=== PATIENT | female | born 1980 | race Caucasian/White ===

== ENCOUNTER → 2016-04-05 | Outpatient (REF) | payer BC ==
[~2016-04-05] MED LIST: AMBI10TA PO; BACT800T5 PO; CLAR1TAB2 PO; GABA800T PO; HYDR-3713 PO; IBUP-1114 PO; LEXA1TAB2 PO; MACR100C3 PO; METF-414 PO; METF-415 PO; MORP15TA39 PO; OXYC10TA12 PO; OXYC15TA66 PO; PRED10TA PO; SING10TA32 PO; XANA0.5T PO
== END | disposition home or self-care (01) ==
LOC: M LABDRAWC 11:00
PROVIDERS: ATTEND Internal Medicine Gastroenterology
DX: K59.00 Constipation, unspecified (principal); R19.7 Diarrhea, unspecified; R14.0 Abdominal distension (gaseous); R10.84 Generalized abdominal pain; K92.1 Melena; K56.60 Unspecified intestinal obstruction; K76.0 Fatty (change of) liver, not elsewhere classified; E66.01 Morbid (severe) obesity due to excess calories; R10.13 Epigastric pain

== ENCOUNTER 2016-04-25 13:42 | Emergency (ER) | payer BC ==
[2016-04-25] MEDS ORDERED: NAPROXEN 250 MG TAB As Ordered ONE (16:01)
[2016-04-25] MEDS ORDERED: CLINDAMYCIN 150 MG CAP As Ordered ONE (16:02)
--- NOTE | 2016-04-25 16:15 | EDDOCDS ---
Nurse's Notes [facility] Name: Elvira Torres Age: 36 yrs Sex: Female : 1980 Arrival Date: 04/25/2016 Time: 13:42 Bed Triage 3 Private MD: Saul Medel W Diagnosis: Local infection of the skin and subcutaneous tissue, unspecified-Left Heel Presentation: 04/25 13:49 Presenting complaint: Patient states: i have a sore on my heel, left heel. hx of same srm last June. last year had MRSA in right heel. erd swollen and shooting pain up left leg. fever of 102 was the highest in past 24 hours. Adult Sepsis Screening: The patient does not have new or worsening altered mentation. Patient's respiratory rate is less than 22. Systolic blood pressure is greater than 100. Patient has a qSOFA score of 0- Negative Sepsis Screen. Suicide/Homicide risk assessment- the patient denies having any suicidal and/or homicidal ideations and does not present with any other emotional, behavioral or mental health complaints. Status: Patient is not a managed services consultant or dependent. Transition of care: patient was not received from another setting of care. 13:49 Acuity: KENISHA Level 4 [facility] 13:49 Method Of Arrival: Walkin/Carried/Asstd [facility] Triage Assessment: 13:53 General: Appears in no apparent distress, Behavior is appropriate for age, cooperative. srm Pain: Pain currently is 10 out of 10 on a pain scale. HIV screening NA for this visit Offered previously. Musculoskeletal: Reports left heel pain. 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 bupropion HCl 100 mg Oral tab 1 tab 2 times per day 2. Claritin 10 mg Oral tab 1 tab once daily 3. diazepam 10 mg Oral tab 1 tab 3 times per day prn 4. Lexapro 20 mg Oral tab 1 tab once daily 5. Singulair 10 mg Oral tab 1 tab once daily 6. 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 No barriers to communication noted, The patient speaks fluent Filipino, Speaks appropriately for age. - Family history: Not pertinent. - : The pt / caregiver states he / she is not on anticoagulants. Home medication list is obtained from the patient. - Exposure Risk Screening:: None identified. Screenin:12 Screening information is obtained from the patient. Fall risk: No risks identified. [facility] Assistance ADL's: requires no assistance with activities of daily living. Abuse/DV Screen: The patient / caregiver reports he/she is: not in a situation that causes fear, pain or injury. Nutritional screening: No deficits noted. Advance Directives: There is no active DNR order. home support is adequate. Assessment: 16:12 General: Appears in no apparent distress, comfortable, Behavior is fussy, patient [facility] states she feels she should be admitted and worked up, offered to obtain provider for further discussion, patient declines stating "I don't want to wait, I've already been here three hours while you guys are having all kinds of breaks, I'm just going to [facility] they do a much better job". Patient refused crackers offered with medications. Respiratory: Airway is patent Respiratory effort is even, unlabored, Respiratory pattern is regular, symmetrical. Musculoskeletal: Range of motion intact in all extremities. Vital Signs: 13:44 BP 144 / 88; Pulse 98; Resp 18 S; Temp 98.6(O); Pulse Ox 99% on R/A; Weight 99.79 kg gr2 (R); Height 5 ft. 5 in. (165.10 cm) (R); Pain 9/10; 13:44 Body Mass Index 36.61 (99.79 kg, 165.10 cm) gr2 Vitals: 13:44 Log In Time: April 25, 2016 at 13:44. gr2 ED Course: 13:43 Patient visited by Gibran Sr. gr2 13:43 Saul Medel is Private Physician. gr2 13:43 Patient moved to Waiting gr2 13:45 Patient visited by Gibran Sr. gr2 13:45 Patient moved to Pre RCE gr2 13:50 Triage Initiated srm 15:08 Patient moved to Triage 3 srm 15:31 [facility]endo[facility] ef[facility] 15:31 Renetta Henry MD is Attending Physician. ef1 15:31 Patient visited by Lilli Mendoza PA-C. ef1 15:42 Saul Medel is Referral Physician. ef1 16:12 The patient / caregiver is instructed regarding the plan of care and ED course. [facility] 16:12 No IV's were initiated during this patient's visit. No procedures done that require [facility] assistance. Administered Medications: 16:11 Drug: Clindamycin 300 mg [clindamycin 150 mg capsule (2 caps)] Route: PO; cj 16:11 Drug: Naproxen 500 mg [naproxen 250 mg tablet (2 tabs)] Route: PO; [facility] Order Results: There are currently no results for this order. Outcome: 15:42 Discharge ordered by Provider. ef1 16:12 Discharge Assessment: Patient awake, alert and oriented x 3. No cognitive and/or [facility] functional deficits noted. Patient verbalized understanding of disposition instructions. patient administered narcotics - no. The following High Risk Discharge criteria are identified: None. Discharged to home ambulatory. Condition: good Condition: stable Condition: improved. Discharge instructions given to patient, Instructed on discharge instructions, follow up and referral plans. medication usage, Demonstrated understanding of instructions, medications, Pt was receptive of discharge instructions/ teaching. Prescriptions given X 2. No special radiology studies were completed. Property :Personal belongings accompany Pt. 16:15 Patient left the ED. [facility] Signatures: Rachael Baron, RN CRI[facility]IAN [facility] Lilli Mendoza PA-C PA-C ef1 Alma De Los Santos RN RN [facility] Gibran Sr gr2 MTDD
--- NOTE | 2016-04-25 16:15 | EDDOCDS ---
Physician Documentation [facility] Name: Elvira Torres Age: 36 yrs Sex: Female : 1980 Arrival Date: 04/25/2016 Time: 13:42 Bed Triage 3 Private MD: Saul Medel W Disposition: 04/25/16 15:42 Discharged to Home/Self Care. Impression: Local infection of the skin and subcutaneous tissue, unspecified - Left Heel. - Condition is Stable. - Prescriptions for Clindamycin HCl 300 mg Oral Capsule - take 1 capsule by ORAL route every 6 hours; 40 capsule. Naprosyn 500 mg Oral Tablet - take 1 tablet by ORAL route 2 times per day take with food; 30 tablet. - Medication Reconciliation, Local Pharmacy Hours form. - Follow up: Saul Medel; When: 1 - 2 days; Reason: Recheck today's complaints, Continuance of care. Follow up: Emergency Department; Reason: Worsening of conditions. - Problem is new. - Symptoms have improved. Historical: - Allergies: Carbamazepine; - Home Meds: 1. bupropion HCl 100 mg Oral tab 1 tab 2 times per day 2. Claritin 10 mg Oral tab 1 tab once daily 3. diazepam 10 mg Oral tab 1 tab 3 times per day prn 4. Lexapro 20 mg Oral tab 1 tab once daily 5. Singulair 10 mg Oral tab 1 tab once daily 6. 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 No barriers to communication noted, The patient speaks fluent Burmese, Speaks appropriately for age. - Family history: Not pertinent. - : The pt / caregiver states he / she is not on anticoagulants. Home medication list is obtained from the patient. - Exposure Risk Screening:: None identified. 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 5 in. (165.10 cm) (R); Pain 9/10; 13:44 Body Mass Index 36.61 (99.79 kg, 165.10 cm) gr2 MDM: 15:39 Clindamycin 300 mg PO once ordered. ef1 15:39 Naproxen 500 mg PO once; administer with food or milk ordered. ef1 16:01 Financial registration complete. gj Administered Medications: 16:11 Drug: Clindamycin 300 mg [clindamycin 150 mg capsule (2 caps)] Route: PO; [facility] 16:11 Drug: Naproxen 500 mg [naproxen 250 mg tablet (2 tabs)] Route: PO; [facility] Signatures: Rachael Baron RN RN [facility] Lilli Mendoza, GARCIA PAKeenan ef Alma De Los Santos RN RN [facility] Chuyita Wharton MTDD
--- NOTE | 2016-04-27 17:16 | EDDOCDS ---
Physician Documentation [facility] Name: Elvira Torres Age: 36 yrs Sex: Female : 1980 Arrival Date: 04/25/2016 Time: 13:42 Bed Triage 3 Private MD: Saul Medel W Disposition: 04/25/16 15:42 Discharged to Home/Self Care. Impression: Local infection of the skin and subcutaneous tissue, unspecified - Left Heel. - Condition is Stable. - Prescriptions for Clindamycin HCl 300 mg Oral Capsule - take 1 capsule by ORAL route every 6 hours; 40 capsule. Naprosyn 500 mg Oral Tablet - take 1 tablet by ORAL route 2 times per day take with food; 30 tablet. - Medication Reconciliation, Local Pharmacy Hours form. - Follow up: Saul Medel; When: 1 - 2 days; Reason: Recheck today's complaints, Continuance of care. Follow up: Emergency Department; Reason: Worsening of conditions. - Problem is new. - Symptoms have improved. Historical: - Allergies: Carbamazepine; - Home Meds: 1. bupropion HCl 100 mg Oral tab 1 tab 2 times per day 2. Claritin 10 mg Oral tab 1 tab once daily 3. diazepam 10 mg Oral tab 1 tab 3 times per day prn 4. Lexapro 20 mg Oral tab 1 tab once daily 5. Singulair 10 mg Oral tab 1 tab once daily 6. 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 No barriers to communication noted, The patient speaks fluent Ghanaian, Speaks appropriately for age. - Family history: Not pertinent. - : The pt / caregiver states he / she is not on anticoagulants. Home medication list is obtained from the patient. - Exposure Risk Screening:: None identified. 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 5 in. (165.10 cm) (R); Pain 9/10; 13:44 Body Mass Index 36.61 (99.79 kg, 165.10 cm) gr2 MDM: 15:39 Clindamycin 300 mg PO once ordered. ef1 15:39 Naproxen 500 mg PO once; administer with food or milk ordered. ef1 16:01 Financial registration complete. [facility] 16:45 [facility] Payment Agreement was scanned into [employer] and attached to record. [facility] 21:05 T-Sheet-- Draft Copy was scanned into [employer] and attached to record. klr Administered Medications: 16:11 Drug: Clindamycin 300 mg [clindamycin 150 mg capsule (2 caps)] Route: PO; [facility] 16:11 Drug: Naproxen 500 mg [naproxen 250 mg tablet (2 tabs)] Route: PO; [facility] Signatures: Rachael Baron RN RN [facility] Lilli Mendoza, PAEverC PAEverC ef1 Alma De Los Santos RN RN [facility] Chuyita Wharton [facility] Shonna Callaway klr The chart was reviewed and I authenticate all verbal orders and agree with the evaluation and treatment provided.Attachments: 16:45 [facility] Payment Agreement [facility] 21:05 T-Sheet-- Draft Copy klr Chart Complete MTDD
--- NOTE | 2016-04-27 17:16 | EDDOCDS ---
Physician Documentation [facility] Name: Elvira Torres Age: 36 yrs Sex: Female : 1980 Arrival Date: 04/25/2016 Time: 13:42 Bed Triage 3 Private MD: Saul Medel W Disposition: 04/25/16 15:42 Discharged to Home/Self Care. Impression: Local infection of the skin and subcutaneous tissue, unspecified - Left Heel. - Condition is Stable. - Prescriptions for Clindamycin HCl 300 mg Oral Capsule - take 1 capsule by ORAL route every 6 hours; 40 capsule. Naprosyn 500 mg Oral Tablet - take 1 tablet by ORAL route 2 times per day take with food; 30 tablet. - Medication Reconciliation, Local Pharmacy Hours form. - Follow up: Saul Medel; When: 1 - 2 days; Reason: Recheck today's complaints, Continuance of care. Follow up: Emergency Department; Reason: Worsening of conditions. - Problem is new. - Symptoms have improved. Historical: - Allergies: Carbamazepine; - Home Meds: 1. bupropion HCl 100 mg Oral tab 1 tab 2 times per day 2. Claritin 10 mg Oral tab 1 tab once daily 3. diazepam 10 mg Oral tab 1 tab 3 times per day prn 4. Lexapro 20 mg Oral tab 1 tab once daily 5. Singulair 10 mg Oral tab 1 tab once daily 6. 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 No barriers to communication noted, The patient speaks fluent Kyrgyz, Speaks appropriately for age. - Family history: Not pertinent. - : The pt / caregiver states he / she is not on anticoagulants. Home medication list is obtained from the patient. - Exposure Risk Screening:: None identified. 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 5 in. (165.10 cm) (R); Pain 9/10; 13:44 Body Mass Index 36.61 (99.79 kg, 165.10 cm) gr2 MDM: 15:39 Clindamycin 300 mg PO once ordered. ef1 15:39 Naproxen 500 mg PO once; administer with food or milk ordered. ef1 16:01 Financial registration complete. [facility] 16:45 [facility] Payment Agreement was scanned into [employer] and attached to record. [facility] 21:05 T-Sheet-- Draft Copy was scanned into [employer] and attached to record. klr Administered Medications: 16:11 Drug: Clindamycin 300 mg [clindamycin 150 mg capsule (2 caps)] Route: PO; [facility] 16:11 Drug: Naproxen 500 mg [naproxen 250 mg tablet (2 tabs)] Route: PO; [facility] Signatures: Rachael Baron RN RN [facility] Lilli Mendoza, PAEverC PAEverC ef1 Alma De Los Santos RN RN [facility] Chuyita Wharton [facility] Shonna Callaway klr The chart was reviewed and I authenticate all verbal orders and agree with the evaluation and treatment provided.Attachments: 16:45 [facility] Payment Agreement [facility] 21:05 T-Sheet-- Draft Copy klr Chart Complete MTDD
--- NOTE | 2016-04-27 17:16 | EDDOCDS ---
Nurse's Notes [facility] Name: Elvira Torres Age: 36 yrs Sex: Female : 1980 Arrival Date: 04/25/2016 Time: 13:42 Bed Triage 3 Private MD: Saul Medel W Diagnosis: Local infection of the skin and subcutaneous tissue, unspecified-Left Heel Presentation: 04/25 13:49 Presenting complaint: Patient states: i have a sore on my heel, left heel. hx of same srm last June. last year had MRSA in right heel. erd swollen and shooting pain up left leg. fever of 102 was the highest in past 24 hours. Adult Sepsis Screening: The patient does not have new or worsening altered mentation. Patient's respiratory rate is less than 22. Systolic blood pressure is greater than 100. Patient has a qSOFA score of 0- Negative Sepsis Screen. Suicide/Homicide risk assessment- the patient denies having any suicidal and/or homicidal ideations and does not present with any other emotional, behavioral or mental health complaints. Status: Patient is not a public service director or dependent. Transition of care: patient was not received from another setting of care. 13:49 Acuity: KENISHA Level 4 [facility] 13:49 Method Of Arrival: Walkin/Carried/Asstd [facility] Triage Assessment: 13:53 General: Appears in no apparent distress, Behavior is appropriate for age, cooperative. srm Pain: Pain currently is 10 out of 10 on a pain scale. HIV screening NA for this visit Offered previously. Musculoskeletal: Reports left heel pain. 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 bupropion HCl 100 mg Oral tab 1 tab 2 times per day 2. Claritin 10 mg Oral tab 1 tab once daily 3. diazepam 10 mg Oral tab 1 tab 3 times per day prn 4. Lexapro 20 mg Oral tab 1 tab once daily 5. Singulair 10 mg Oral tab 1 tab once daily 6. 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 No barriers to communication noted, The patient speaks fluent [place] Islander, Speaks appropriately for age. - Family history: Not pertinent. - : The pt / caregiver states he / she is not on anticoagulants. Home medication list is obtained from the patient. - Exposure Risk Screening:: None identified. Screenin:12 Screening information is obtained from the patient. Fall risk: No risks identified. [facility] Assistance ADL's: requires no assistance with activities of daily living. Abuse/DV Screen: The patient / caregiver reports he/she is: not in a situation that causes fear, pain or injury. Nutritional screening: No deficits noted. Advance Directives: There is no active DNR order. home support is adequate. Assessment: 16:12 General: Appears in no apparent distress, comfortable, Behavior is fussy, patient [facility] states she feels she should be admitted and worked up, offered to obtain provider for further discussion, patient declines stating "I don't want to wait, I've already been here three hours while you guys are having all kinds of breaks, I'm just going to [facility] they do a much better job". Patient refused crackers offered with medications. Respiratory: Airway is patent Respiratory effort is even, unlabored, Respiratory pattern is regular, symmetrical. Musculoskeletal: Range of motion intact in all extremities. Vital Signs: 13:44 BP 144 / 88; Pulse 98; Resp 18 S; Temp 98.6(O); Pulse Ox 99% on R/A; Weight 99.79 kg gr2 (R); Height 5 ft. 5 in. (165.10 cm) (R); Pain 9/10; 13:44 Body Mass Index 36.61 (99.79 kg, 165.10 cm) gr2 Vitals: 13:44 Log In Time: April 25, 2016 at 13:44. gr2 ED Course: 13:43 Patient visited by Gibran Sr. gr2 13:43 Saul Medel is Private Physician. gr2 13:43 Patient moved to Waiting gr2 13:45 Patient visited by Gibran Sr. gr2 13:45 Patient moved to Pre RCE gr2 13:50 Triage Initiated srm 15:08 Patient moved to Triage 3 srm 15:31 Lilli Mendoza PA-C is [facility]. ef1 15:31 Renetta Henry MD is Attending Physician. ef1 15:31 Patient visited by Lilli Mendoza PA-C. ef1 15:42 Saul Medel is Referral Physician. ef1 16:12 The patient / caregiver is instructed regarding the plan of care and ED course. [facility] 16:12 No IV's were initiated during this patient's visit. No procedures done that require [facility] assistance. 16:45 [facility] Payment Agreement was scanned into [employer] and attached to record. [facility] 21:05 T-Sheet-- Draft Copy was scanned into [employer] and attached to record. klr Administered Medications: 16:11 Drug: Clindamycin 300 mg [clindamycin 150 mg capsule (2 caps)] Route: PO; [facility] 16:11 Drug: Naproxen 500 mg [naproxen 250 mg tablet (2 tabs)] Route: PO; [facility] Order Results: There are currently no results for this order. Outcome: 15:42 Discharge ordered by Provider. ef1 16:12 Discharge Assessment: Patient awake, alert and oriented x 3. No cognitive and/or [facility] functional deficits noted. Patient verbalized understanding of disposition instructions. patient administered narcotics - no. The following High Risk Discharge criteria are identified: None. Discharged to home ambulatory. Condition: good Condition: stable Condition: improved. Discharge instructions given to patient, Instructed on discharge instructions, follow up and referral plans. medication usage, Demonstrated understanding of instructions, medications, Pt was receptive of discharge instructions/ teaching. Prescriptions given X 2. No special radiology studies were completed. Property :Personal belongings accompany Pt. 16:15 Patient left the ED. [facility] Signatures: Rachael Baron RN RN [facility] Lilli Mendoza PA-C PA-C ef1 Alma De Los Santos RN RN [facility] Gibran Sr 2 Chuyita Wharton Shonna Callaway Chart Complete MTDD
== END 2016-04-25 16:15 | disposition home or self-care (01) ==
LOC: M ED 13:42
DX: L08.9 Local infection of the skin and subcutaneous tissue, unspecified (principal); F32.9 Major depressive disorder, single episode, unspecified; J30.9 Allergic rhinitis, unspecified; L52 Erythema nodosum; E28.2 Polycystic ovarian syndrome; G50.8 Other disorders of trigeminal nerve; K76.0 Fatty (change of) liver, not elsewhere classified; Z79.899 Other long term (current) drug therapy; Z88.8 Allergy status to other drugs, medicaments and biological substances

== ENCOUNTER → 2016-06-17 | Outpatient (REF) | payer BC | LOC: M LAB REF 16:42 | PROVIDERS: ATTEND Physician Assistant | DX: J02.9 Acute pharyngitis, unspecified (principal) ==

== ENCOUNTER 2016-11-01 11:13 | Emergency (ER) | payer BC ==
[~2016-11-01] VITALS: Ht 165.1 cm; Wt 109.1 kg
[~2016-11-01 11:13] MED LIST changes: -MACR100C3 PO; +MACR100C43 PO; -MORP15TA39 PO; +MORP1TAB19 PO
[2016-11-01] MEDS ORDERED: METF-415 PO (11:31)
[2016-11-01] MEDS ORDERED: VALI10TA PO (11:31)
[2016-11-01] MEDS ORDERED: TIZA4CAP3 PO (11:31)
[2016-11-01] MEDS ORDERED: MORPHINE 4 MG/ML 1ML SYRINGE IM ONE ×2 (13:30→14:45)
[2016-11-01] MEDS ORDERED: ONDANSETRON 4 MG ORAL DISINTEGRATING TAB (S0181) PO ONE (13:30)
[2016-11-01] MEDS ORDERED: MORPHINE 4 MG/ML 1ML SYRINGE IV ONE (13:30)
[2016-11-01] MEDS ORDERED: KETOROLAC 60 MG/2 ML VIAL (J1885) IM ONE (18:00)
--- NOTE | 2016-11-01 18:11 | REP ---
MRI LUMBAR SPINE WITHOUT CONTRAST: HISTORY: Back pain. Decreased signal intensity on T2 weighted images is present in the L4-5 intervertebral discs. The discs are decreased in height. These findings are consistent with disc degeneration. There is no disc bulge or herniation at the L1-2 through L3-4 and L5-S1 level. The nerves exit the neural foramina without compression. A diffuse disc bulge and small central disc protrusion are present in the L 4-5 level. There is minimal compression of the thecal sac. The L4-nerves exit the neural foramina without compression. The conus medullaris is normal in appearance terminalizing at the level of the T12-L1 intervertebral discs. Normal signal intensity is present in the lumbar vertebral bodies. IMPRESSION: Diffuse disc bulge and small central disc protrusion at the L4-5 level with minimal thecal sac compression. Signed by Saul Fritz MD 11/02/2016 08:47 A
[2016-11-01] MEDS ORDERED: PERCOCET 5MG/325MG TAB PO ONE (19:00)
[2016-11-01] MEDS ORDERED: PERC5TAB12 PO (19:02)
[2016-11-01 19:10] VITALS: BP 136/72
== END 2016-11-01 19:11 | disposition home or self-care (01) ==
LOC: M ED 11:13
DX: M51.26 Other intervertebral disc displacement, lumbar region (principal); G89.29 Other chronic pain; R15.9 Full incontinence of feces; M51.36 Other intervertebral disc degeneration, lumbar region; E28.2 Polycystic ovarian syndrome; Z79.84 Long term (current) use of oral hypoglycemic drugs; Z79.899 Other long term (current) drug therapy; Z87.891 Personal history of nicotine dependence; Z88.8 Allergy status to other drugs, medicaments and biological substances
CPT/HCPCS: 72148; 96372; 99282; J1885

== ENCOUNTER 2017-07-19 10:45 | Emergency (ER) | payer BC ==
[2017-07-19 11:44] LABS: AMORPHOUS SEDIMENT SMALL (NEGATIVE); APPEARANCE, URINE CLOUDY (CLEAR); BACTERIA, URINE AUTO 1+ (NEGATIVE); BILIRUBIN, URINE AUTO NEGATIVE (NEGATIVE); BLOOD, URINE BLOOD 3+ (NEGATIVE); COLOR, URINE YELLOW (YELLOW); GLUCOSE, URINE (UA) AUTO NEGATIVE (NEGATIVE); KETONE, URINE AUTO NEGATIVE (NEGATIVE); LEUKOCYTE ESTERASE, URINE AUTO TRACE (NEGATIVE); MUCUS, URINE SMALL (NEGATIVE); NITRITE, URINE AUTO NEGATIVE (NEGATIVE); PROTEIN, URINE AUTO NEGATIVE (NEGATIVE); RBC, URINE AUTO TNTC /HPF (0-3); SPECIFIC GRAVITY URINE AUTO 1.018 (1.002-1.035); SQUAMOUS EPITHELIAL CELL UR AU 5 /HPF (0-6); UROBILINOGEN, URINE AUTO 0.2 mg/dL (0.0-2.0); WBC, URINE AUTO 17 /HPF (0-3)
[2017-07-19] MEDS: KETOROLAC 30 MG/ML VIAL (J1885) IV (12:14)
[2017-07-19 12:24] LABS: BASO # 0.1 10^3/uL (0.0-0.2); EOS # 0.4 10^3/uL (0.0-0.50); EOS % 3.2 % (0.0-3.0); HEMATOCRIT 37.7 % (36.0-47.0); HEMOGLOBIN 12.7 g/dl (12.0-15.5); IMMATURE GRANULOCYTE % 1.4 % (0-3.0); LYMPH # 2.8 10^3/uL (1.5-4.5); LYMPH % 25.5 % (24.0-44.0); MEAN CORPUSCULAR HGB CONC 33.7 g/dl (32.0-36.5); MONO # 0.7 10^3/uL (0.0-0.8); MONO % 6.6 % (0.0-5.0); NEUTROPHILS # 6.8 10^3/uL (1.8-7.7); NEUTROPHILS % 62.3 % (36.0-66.0); PLATELET COUNT, AUTOMATED 257 10^3/uL (150-450); RED BLOOD COUNT 4.54 10^6/uL (4.00-5.40); RED CELL DISTRIBUTION WIDTH 13.2 % (11.5-14.5); WHITE BLOOD COUNT 10.9 10^3/uL (4.0-10.0)
[2017-07-19 12:52] LABS: ALBUMIN 4.2 GM/DL (3.2-5.2); ALBUMIN/GLOBULIN RATIO 1.14 (1.00-1.93); ALKALINE PHOSPHATASE 94 U/L (45-117); ALT/SGPT 72 U/L (12-78); AMYLASE 106 U/L (25-115); ANION GAP 5 MEQ/L (8-16); AST/SGOT 44 U/L (7-37); BILIRUBIN,DIRECT 0.2 MG/DL (0.0-0.2); BILIRUBIN,TOTAL 0.7 MG/DL (0.2-1.0); BLOOD UREA NITROGEN 13 MG/DL (7-18); C REACTIVE PROTEIN QUANTITATIV 1.31 MG/DL (0.00-0.30); CALCIUM LEVEL 9.2 MG/DL (8.5-10.1); CARBON DIOXIDE LEVEL 27 MEQ/L (21-32); CHLORIDE LEVEL 106 MEQ/L (98-107); CREATININE FOR GFR 0.82 MG/DL (0.55-1.30); GAMMA GLUTAMYLTRANSPEPTIDASE 84 U/L (5-55); GLOMERULAR FILTRATION RATE > 60.0 (>60); GLUCOSE, FASTING 79 MG/DL (70-100); LIPASE 265 U/L (73-393); POTASSIUM SERUM 4.2 MEQ/L (3.5-5.1); SODIUM LEVEL 138 MEQ/L (136-145); TOTAL PROTEIN 7.9 GM/DL (6.4-8.2)
[2017-07-19 13:01] LABS: LACTIC ACID SEPSIS PROTOCOL 1.6 MMOL/L (0.4-2.0)
[2017-07-19] MEDS: MORPHINE 4 MG/ML 1ML VIAL/SYRINGE (J2270) IV (13:03)
[2017-07-19] MEDS: NS 1,000 ML IV (13:26)
== END 2017-07-19 14:19 | disposition home or self-care (01) ==
LOC: M ED 10:45
DX: N39.0 Urinary tract infection, site not specified (principal); K80.50 Calculus of bile duct without cholangitis or cholecystitis without obstruction; R16.2 Hepatomegaly with splenomegaly, not elsewhere classified; K76.0 Fatty (change of) liver, not elsewhere classified; Z98.890 Other specified postprocedural states; E66.9 Obesity, unspecified; E28.2 Polycystic ovarian syndrome; F33.9 Major depressive disorder, recurrent, unspecified; F41.9 Anxiety disorder, unspecified; G50.0 Trigeminal neuralgia; Z87.448 Personal history of other diseases of urinary system; Z88.8 Allergy status to other drugs, medicaments and biological substances
CPT/HCPCS: J2270

== ENCOUNTER → 2018-02-13 | Outpatient (REF) | payer BC ==
[2018-02-13 16:56] LABS: HEMATOCRIT 39.2 % (36.0-47.0); HEMOGLOBIN 12.7 g/dl (12.0-15.5); MEAN CORPUSCULAR HEMOGLOBIN 26.6 pg (27.0-33.0); MEAN CORPUSCULAR HGB CONC 32.4 g/dl (32.0-36.5); MEAN CORPUSCULAR VOLUME 82.2 fl (80.0-96.0); PLATELET COUNT, AUTOMATED 257 10^3/uL (150-450); RED BLOOD COUNT 4.77 10^6/uL (4.00-5.40); RED CELL DISTRIBUTION WIDTH 13.6 % (11.5-14.5); WHITE BLOOD COUNT 10.6 10^3/uL (4.0-10.0)
[2018-02-13 17:47] LABS: ALBUMIN 4.2 GM/DL (3.2-5.2); ALBUMIN/GLOBULIN RATIO 1.11 (1.00-1.93); ALKALINE PHOSPHATASE 82 U/L (45-117); ALT/SGPT 44 U/L (12-78); ANION GAP 8 MEQ/L (8-16); AST/SGOT 22 U/L (7-37); BILIRUBIN,TOTAL 0.5 MG/DL (0.2-1.0); BLOOD UREA NITROGEN 12 MG/DL (7-18); CALCIUM LEVEL 9.1 MG/DL (8.5-10.1); CARBON DIOXIDE LEVEL 29 MEQ/L (21-32); CHLORIDE LEVEL 102 MEQ/L (98-107); CHOLESTEROL LEVEL 197 MG/DL (<200); CHOLESTEROL RISK RATIO 5.472 (<5); CREATININE FOR GFR 0.79 MG/DL (0.55-1.30); GLOMERULAR FILTRATION RATE > 60.0 (>60); GLUCOSE, FASTING 84 MG/DL (70-100); HDL CHOLESTEROL 36 MG/DL (>40); LDL CHOLESTEROL 130 MG/DL (<100); NON-HDL-C 161 MG/DL; POTASSIUM SERUM 4.2 MEQ/L (3.5-5.1); SODIUM LEVEL 139 MEQ/L (136-145); TRIGLYCERIDES LEVEL 154 MG/DL (<150)
[2018-02-13 18:07] LABS: ESTIMATED AVERAGE GLUCOSE 128 MG/DL (60-110); HEMOGLOBIN A1c 6.1 %
== END ==
LOC: M SFHCCLAY 11:22
DX: E78.5 Hyperlipidemia, unspecified (principal); E07.9 Disorder of thyroid, unspecified; E66.01 Morbid (severe) obesity due to excess calories; R42 Dizziness and giddiness
CPT/HCPCS: 84443

== ENCOUNTER → 2019-06-11 | Outpatient (CLI) | payer BC ==
[~2019-06-11] MED LIST changes: +CLAR10CA3 PO; -GABA800T PO; +GABA800T4 PO; +HYDR-3715 PO; +PERC5TAB12 PO; +PRED-351 PO; -PRED10TA PO; +TIZA4CAP PO; +VALI10TA PO; +ZOFR4TAB14 PO
== END ==
LOC: M LABSMTC 11:46
PROVIDERS: ATTEND Family Medicine
DX: Z11.59 Encounter for screening for other viral diseases (principal); Z20.818 Contact with and (suspected) exposure to other bacterial communicable diseases

== ENCOUNTER → 2019-09-20 | Outpatient (REF) | payer BC ==
[2019-09-20 12:58] LABS: BASO # 0.1 10^3/uL (0.0-0.2); BASO % 1.1 % (0.0-1.0); EOS # 0.5 10^3/uL (0.0-0.5); EOS % 4.2 % (0.0-3.0); HEMOGLOBIN 13.1 g/dl (12.0-15.5); LYMPH # 2.4 10^3/uL (1.5-5.0); LYMPH % 21.2 % (24.0-44.0); MEAN CORPUSCULAR HEMOGLOBIN 27.8 pg (27.0-33.0); MEAN CORPUSCULAR HGB CONC 32.8 g/dl (32.0-36.5); MEAN CORPUSCULAR VOLUME 84.7 fl (80.0-96.0); MONO # 0.8 10^3/uL (0.0-0.8); MONO % 6.6 % (0.0-5.0); NEUTROPHILS # 7.5 10^3/uL (1.5-8.5); NEUTROPHILS % 65.8 % (36.0-66.0); PLATELET COUNT, AUTOMATED 282 10^3/uL (150-450); RED BLOOD COUNT 4.72 10^6/uL (4.00-5.40); WHITE BLOOD COUNT 11.4 10^3/uL (4.0-10.0)
[2019-09-20 13:37] LABS: ALBUMIN 3.7 GM/DL (3.2-5.2); ALT/SGPT 37 U/L (12-78); BILIRUBIN,TOTAL 0.5 MG/DL (0.2-1.0); BLOOD UREA NITROGEN 16 MG/DL (7-18); CALCIUM LEVEL 9.1 MG/DL (8.5-10.1); CARBON DIOXIDE LEVEL 27 MEQ/L (21-32); CHLORIDE LEVEL 105 MEQ/L (98-107); CHOLESTEROL LEVEL 181 MG/DL (<200); CHOLESTEROL RISK RATIO 6.464 (<5); CREATININE FOR GFR 0.82 MG/DL (0.55-1.30); FREE T4 1.25 NG/DL (0.76-1.46); GLOMERULAR FILTRATION RATE > 60.0 (>60); GLUCOSE, FASTING 146 MG/DL (70-100); HDL CHOLESTEROL 28 MG/DL (>40); LDL CHOLESTEROL 96 MG/DL (<100); NON-HDL-C 153 MG/DL; POTASSIUM SERUM 4.5 MEQ/L (3.5-5.1); SODIUM LEVEL 139 MEQ/L (136-145); TOTAL PROTEIN 7.5 GM/DL (6.4-8.2); TRIGLYCERIDES LEVEL 283 MG/DL (<150)
[2019-09-20 17:38] LABS: HEMOGLOBIN A1c 7.3 %
== END ==
LOC: M SFHCCLAY 08:05
PROVIDERS: ATTEND Nurse Practitioner Family
DX: R23.8 Other skin changes (principal); R60.9 Edema, unspecified; R10.13 Epigastric pain; L40.9 Psoriasis, unspecified; E78.5 Hyperlipidemia, unspecified; E66.01 Morbid (severe) obesity due to excess calories; M51.26 Other intervertebral disc displacement, lumbar region; E28.2 Polycystic ovarian syndrome; R16.0 Hepatomegaly, not elsewhere classified

== ENCOUNTER 2019-10-01 11:35 | Emergency (ER) | payer BC ==
[~2019-10-01 11:35] MED LIST changes: +GASTROGRAFIN SOLUTION 30ML (Q9963) ONE; +METOCLOPRAMIDE INJ 10MG/2ML VIAL (J2765 PER 1) ONE; +MORPHINE 4 MG/ML 1ML VIAL/SYRINGE (J2270) ONE; +ONDANSETRON 4MG/2ML VIAL ONE
[2019-10-01] MEDS ORDERED: ISOVUE-370 76% 100ML VIAL As Ordered ONE (14:10)
[2019-10-01] MEDS ORDERED: MORPHINE 4 MG/ML 1ML VIAL/SYRINGE (J2270) ONE (15:36)
--- NOTE | 2019-11-01 18:21 | REP ---
CT OF THE ABDOMEN AND PELVIS WITH CONTRAST: HISTORY: Abdominal pain, rule out obstruction. TECHNIQUE: Axial contrast-enhanced images from the lung bases to the pubic symphysis using oral (per protocol) and 100 cc Isovue 370 intravenous contrast material with coronary and sagittal reformations. FINDINGS: Lung bases are clear. The visualized heart and pericardium are normal. Enlarged fatty liver measures greater than 26 cm in craniocaudal length without focal hepatic lesion identified. The spleen, pancreas, gallbladder, bilateral adrenal glands and kidneys are relatively normal. The right kidney demonstrates mild, chronic-appearing cortical scarring. The enteric system is without obstruction or acute inflammatory process. Normal terminal ileum and cecum identified in the right lower quadrant. The pelvis demonstrates normal bladder and age appropriate uterus/adnexa. No pelvic fluid. No ascites. No free air. No adenopathy. The abdominal aorta and vasculature are normal. Evidence for prior partial laminectomy and posterior fixation at the L4- 5 level. The remainder of the skeletal structures demonstrate age related changes without acute process. IMPRESSION: 1. Hepatomegaly and hepatosteatosis without focal hepatic lesion. 2. No further acute abdominopelvic pathology appreciated. MTDD
[2019-11-04 09:19] LABS: BASO # 0.1 10^3/uL (0.0-0.2); BASO % 0.5 % (0.0-1.0); EOS # 0.7 10^3/uL (0.0-0.5); EOS % 6.9 % (0.0-3.0); HEMATOCRIT 40.2 % (36.0-47.0); LYMPH # 2.6 10^3/uL (1.5-5.0); LYMPH % 26.1 % (24.0-44.0); MEAN CORPUSCULAR HEMOGLOBIN 27.3 pg (27.0-33.0); MEAN CORPUSCULAR HGB CONC 32.3 g/dl (32.0-36.5); MEAN CORPUSCULAR VOLUME 84.5 fl (80.0-96.0); MONO # 0.7 10^3/uL (0.0-0.8); MONO % 6.9 % (0.0-5.0); NEUTROPHILS # 5.7 10^3/uL (1.5-8.5); NEUTROPHILS % 57.7 % (36.0-66.0); PLATELET COUNT, AUTOMATED 250 10^3/uL (150-450); RED BLOOD COUNT 4.76 10^6/uL (4.00-5.40); WHITE BLOOD COUNT 9.8 10^3/uL (4.0-10.0)
[2019-11-04 09:20] LABS: APPEARANCE, URINE CLOUDY (CLEAR); BACTERIA, URINE AUTO 1+ (NEGATIVE); BILIRUBIN, URINE AUTO NEGATIVE (NEGATIVE); BLOOD, URINE BLOOD NEGATIVE (NEGATIVE); COLOR, URINE YELLOW (YELLOW); GLUCOSE, URINE (UA) AUTO NEGATIVE (NEGATIVE); KETONE, URINE AUTO TRACE mg/dL (NEGATIVE); LEUKOCYTE ESTERASE, URINE AUTO NEGATIVE (NEGATIVE); MUCUS, URINE SMALL (NEGATIVE); NITRITE, URINE AUTO NEGATIVE (NEGATIVE); PROTEIN, URINE AUTO NEGATIVE (NEGATIVE); RBC, URINE AUTO 4 /HPF (0-3); SPECIFIC GRAVITY URINE AUTO 1.024 (1.002-1.035); SQUAMOUS EPITHELIAL CELL UR AU 16 /HPF (0-6); UROBILINOGEN, URINE AUTO 0.2 mg/dL (0.0-2.0); WBC, URINE AUTO 7 /HPF (0-3)
[2019-12-15 13:46] LABS: ALT/SGPT 65 U/L (12-78); BLOOD UREA NITROGEN 13 MG/DL (7-18); CALCIUM LEVEL 9.4 MG/DL (8.5-10.1); CARBON DIOXIDE LEVEL 29 MEQ/L (21-32); CHLORIDE LEVEL 106 MEQ/L (98-107); CREATININE FOR GFR 0.82 MG/DL (0.55-1.30); GLOMERULAR FILTRATION RATE > 60.0 (>60); GLUCOSE, FASTING 129 MG/DL (70-100); POTASSIUM SERUM 4.9 MEQ/L (3.5-5.1); SODIUM LEVEL 142 MEQ/L (136-145)
[2019-12-15 13:47] LABS: ALBUMIN 3.7 GM/DL (3.2-5.2); BILIRUBIN,DIRECT 0.1 MG/DL (0.0-0.2); BILIRUBIN,TOTAL 0.5 MG/DL (0.2-1.0); CK-MB VALUE MASS < 1.0 NG/ML (<3.6); CPK CREATINE PHOSPHOKINASE 56 U/L (26-192); HCG, SERUM QUALITATIVE NEGATIVE (NEGATIVE); LIPASE 302 U/L (73-393); MB/CK RELATIVE INDEX 1.79 (< OR =4); TOTAL PROTEIN 7.6 GM/DL (6.4-8.2)
== END 2019-10-01 16:10 | disposition home or self-care (01) ==
LOC: M ED 11:35
DX: K76.9 Liver disease, unspecified (principal); R16.0 Hepatomegaly, not elsewhere classified; Z87.19 Personal history of other diseases of the digestive system; Z79.899 Other long term (current) drug therapy; Z88.8 Allergy status to other drugs, medicaments and biological substances
CPT/HCPCS: 74177; 80048; 80076; 81001; 82550; 82553; 83690; 84703; 85025; 96361; 96374; 96375; 96376; 99284; J2270; J2405; J2765; Q9963; Q9967

== ENCOUNTER → 2019-12-25 | Outpatient (REF) | payer BC ==
[~2019-12-25] MED LIST changes: -GASTROGRAFIN SOLUTION 30ML (Q9963) ONE; -METOCLOPRAMIDE INJ 10MG/2ML VIAL (J2765 PER 1) ONE; -MORPHINE 4 MG/ML 1ML VIAL/SYRINGE (J2270) ONE; -ONDANSETRON 4MG/2ML VIAL ONE
== END ==
LOC: M SFHCCLAY 11:32
PROVIDERS: ATTEND Nurse Practitioner Family
DX: N39.46 Mixed incontinence (principal); N30.01 Acute cystitis with hematuria

== ENCOUNTER → 2020-02-08 | Outpatient (REF) | payer BC ==
[2020-02-08 12:22] LABS: BLOOD UREA NITROGEN 18 MG/DL (7-18); CALCIUM LEVEL 9.3 MG/DL (8.5-10.1); CARBON DIOXIDE LEVEL 29 MEQ/L (21-32); CHLORIDE LEVEL 107 MEQ/L (98-107); CREATININE FOR GFR 0.84 MG/DL (0.55-1.30); GLOMERULAR FILTRATION RATE > 60.0 (>60); GLUCOSE, FASTING 106 MG/DL (70-100); POTASSIUM SERUM 4.6 MEQ/L (3.5-5.1); SODIUM LEVEL 139 MEQ/L (136-145)
== END ==
LOC: M SFHCCLAY 07:30
PROVIDERS: ATTEND Nurse Practitioner Family
DX: E11.9 Type 2 diabetes mellitus without complications (principal)

== ENCOUNTER → 2020-02-14 | Outpatient (CLI) | payer BC ==
[~2020-02-14] MED LIST changes: +CETI10CA13 PO; +FURO20TA2; +ISIB1TAB; +ONDA-83; +PANT40TA29; +SPIR50TA4
== END ==
LOC: M LABSMTC 11:44
PROVIDERS: ATTEND Anesthesiology
DX: Z01.812 Encounter for preprocedural laboratory examination (principal); Z20.828 Contact with and (suspected) exposure to other viral communicable diseases

== ENCOUNTER 2020-02-19 09:38 | Day surgery (SDC) | payer BC ==
[~2020-02-19] VITALS: Ht 165.1 cm; Wt 117.2 kg
[2020-02-19] MEDS ORDERED: NS 1,000 ML IV ONE (10:15)
[2020-02-19] MEDS ORDERED: LIDOCAINE 2% 100MG/5ML SDV (FOR ANES.) As Ordered ONE (10:20)
[2020-02-19] MEDS ORDERED: propofoL 200 MG/20 ML VIAL As Ordered ONE ×2 (10:20→10:33)
[2020-02-19] MEDS ORDERED: CETACAINE SPRAY 5GM As Ordered ONE (10:23)
[2020-02-19 11:15] VITALS: BP 137/89
--- NOTE | 2020-02-19 11:23 | ROOR ---
Patient Name: Elvira Torres Procedure Date: 02/19/2020 10:18 AM Date of : 1980 Age: 39 Room: [facility] Gender: Female Note Status: Finalized Procedure: Upper GI endoscopy Indications: Epigastric abdominal pain, Functional Dyspepsia, Abnormal CT of the GI tract Providers: Maicol Fitch MD Referring MD: Yumiko Lord NP Requesting Provider: Medicines: Monitored Anesthesia Care Complications: No immediate complications. Procedure: Pre-Anesthesia Assessment: - Prior to the procedure, a History and Physical was performed, and patient medications and allergies were reviewed. The patient is competent. The risks and benefits of the procedure and the sedation options and risks were discussed with the patient. All questions were answered and informed consent was obtained. Patient identification and proposed procedure were verified by the physician, the nurse and the anesthesiologist in the procedure room. Mental Status Examination: alert and oriented. Airway Examination: normal oropharyngeal airway and neck mobility. Respiratory Examination: clear to auscultation. CV Examination: normal. Prophylactic Antibiotics: The patient does not require prophylactic antibiotics. Prior Anticoagulants: The patient has taken no previous anticoagulant or antiplatelet agents. ASA Grade Assessment: II - A patient with mild systemic disease. After reviewing the risks and benefits, the patient was deemed in satisfactory condition to undergo the procedure. The anesthesia plan was to use monitored anesthesia care (MAC). Immediately prior to administration of medications, the patient was re-assessed for adequacy to receive sedatives. The heart rate, respiratory rate, oxygen saturations, blood pressure, adequacy of pulmonary ventilation, and response to care were monitored throughout the procedure. The physical status of the patient was re-assessed after the procedure. The Colonoscope was introduced through the mouth, and advanced to the jejunum. The upper GI endoscopy was accomplished without difficulty. The patient tolerated the procedure well. Findings: The examined esophagus was normal. Scattered mild inflammation characterized by erythema and granularity was found in the gastric antrum. Biopsies were taken with a cold forceps for Helicobacter pylori testing. Verification of patient identification for the specimen was done by the physician and nurse using the patient's name, date and medical record number. Estimated blood loss was minimal. No gross lesions were noted in the entire examined duodenum. Normal mucosa was found in the jejunum. Multiple biopsies were obtained in the entire duodenum and in the proximal jejunum with cold forceps for histology and evaluation of celiac disease. Verification of patient identification for the specimen was done by the physician and nurse using the patient's name, date and medical record number. Estimated blood loss was minimal. A small non-bleeding diverticulum was found in the jejunum. Impression: - Normal esophagus. - Gastritis. Biopsied. - No gross lesions in the entire examined duodenum. - Normal mucosa was found in the jejunum. - Non-bleeding jejunal diverticulum. - Multiple biopsies were obtained in the entire duodenum and in the proximal jejunum. Recommendation: - Patient has a contact number available for emergencies. The signs and symptoms of potential delayed complications were discussed with the patient. Return to normal activities tomorrow. Written discharge instructions were provided to the patient. - High fiber diet. - Continue present medications. - Await pathology results. - Use Pepcid (famotidine) 20 mg PO Twice daily ( take therapeutic program worker on empty stomach and at bedtime) for 6 weeks. - Telephone GI clinic for pathology results in 2 weeks. - Return to primary care physician. Procedure Code(s): --- Professional --- 61112, Esophagogastroduodenoscopy, flexible, transoral; with biopsy, single or multiple Diagnosis Code(s): --- Professional --- K29.70, Gastritis, unspecified, without bleeding R10.13, Epigastric pain K30, Functional dyspepsia K57.10, Diverticulosis of small intestine without perforation or abscess without bleeding R93.3, Abnormal findings on diagnostic imaging of other parts of digestive tract CPT copyright 2019 [employer]. All rights reserved. The codes documented in this report are preliminary and upon enrollment processor review may be revised to meet current compliance requirements. Maicol Fitch MD Maicol Fitch MD 02/19/2020 11:23:22 AM Electronically signed by Maicol Fitch MD Number of Addenda: 0 Note Initiated On: 02/19/2020 10:18 AM Estimated Blood Loss: Estimated blood loss was minimal.
== END 2020-02-19 11:29 | disposition home or self-care (01) ==
LOC: M OPP 09:38
PROVIDERS: ATTEND Internal Medicine Gastroenterology
DX: K29.70 Gastritis, unspecified, without bleeding (principal); K57.10 Diverticulosis of small intestine without perforation or abscess without bleeding; K30 Functional dyspepsia; R93.3 Abnormal findings on diagnostic imaging of other parts of digestive tract; E11.9 Type 2 diabetes mellitus without complications; Z79.84 Long term (current) use of oral hypoglycemic drugs; Z79.899 Other long term (current) drug therapy; Z88.8 Allergy status to other drugs, medicaments and biological substances

== ENCOUNTER → 2020-02-26 | Outpatient (REF) | payer BC | LOC: M SFHCCLAY 15:46 | PROVIDERS: ATTEND Nurse Practitioner Family | DX: R30.0 Dysuria (principal) | CPT/HCPCS: 87086; U0003 ==

== ENCOUNTER → 2020-04-16 | Outpatient (REF) | payer BC ==
[2020-04-17 11:43] LABS: APPEARANCE, URINE CLOUDY (CLEAR); BACTERIA, URINE AUTO 3+ (NEGATIVE); BILIRUBIN, URINE AUTO NEGATIVE (NEGATIVE); BLOOD, URINE BLOOD 2+ (NEGATIVE); COLOR, URINE YELLOW (YELLOW); GLUCOSE, URINE (UA) AUTO NEGATIVE (NEGATIVE); KETONE, URINE AUTO NEGATIVE (NEGATIVE); LEUKOCYTE ESTERASE, URINE AUTO 1+ (NEGATIVE); MUCUS, URINE SMALL (NEGATIVE); NITRITE, URINE AUTO POSITIVE (NEGATIVE); PROTEIN, URINE AUTO NEGATIVE (NEGATIVE); RBC, URINE AUTO 3 /HPF (0-3); SQUAMOUS EPITHELIAL CELL UR AU 4 /HPF (0-6); UROBILINOGEN, URINE AUTO 0.2 mg/dL (0.0-2.0); WBC, URINE AUTO 25 /HPF (0-3)
== END ==
LOC: M SFHCCLAY 14:45
PROVIDERS: ATTEND Nurse Practitioner Family
DX: N39.0 Urinary tract infection, site not specified (principal)

== ENCOUNTER → 2020-11-12 | Outpatient (CLI) | payer BC ==
[~2020-11-12] MED LIST changes: +GASTROGRAFIN SOLUTION 30ML (Q9963) ONE; +ISOVUE-370 76% 100ML VIAL ONE
--- NOTE | 2020-11-12 13:53 | REP ---
INDICATION: DIAPHRAGMATIC HERNIA. COMPARISON: Multiple the latest 10/01/2019 TECHNIQUE: Standard helical technique before and after the intravenous administration of 100 cc Isovue 370. Oral bowel preparatory contrast was also administered prior to the exam. FINDINGS: Lung bases are unchanged. There are bilateral pulmonary nodules status quo. The pre contrast enhanced portion examination shows diffuse low density throughout the a patent parenchyma. There are no choleliths. There are no nephroliths. There are no urinary bladder calcifications. Contrast-enhanced portion examination shows no evidence of an enhancing hepatic lesion. The gallbladder, spleen, pancreas, adrenal glands, and kidneys are unchanged. Chronic scarring is again seen in the superior pole the right kidney. The abdominal aorta and para regions are again seen to be within normal limits. Small lymph nodes are noted. No adilson adenopathy has developed. There is no significant change in appearance of the bowel loops or the mesenteries. There is no change in appearance of the intra spray artifact is again seen arising from transpedicular screws seen bilaterally L4 and L5 status quo. Pelvic contents. No mass or adenopathy has developed. There is no free fluid or free air. IMPRESSION: 1. There is diffuse fatty infiltration of the liver. 2. There is no evidence of acute disease. Additional findings as described above. <Electronically signed by Jordan Vega > 11/12/20 [id number]
== END ==
LOC: M PLAIMG 11:39
PROVIDERS: ATTEND Nurse Practitioner Family
DX: K44.9 Diaphragmatic hernia without obstruction or gangrene (principal)

== ENCOUNTER → 2021-02-13 | Outpatient (REF) | payer BC ==
[~2021-02-13] MED LIST changes: -GASTROGRAFIN SOLUTION 30ML (Q9963) ONE; -ISOVUE-370 76% 100ML VIAL ONE
== END ==
LOC: M SFHCCLAY 08:59
PROVIDERS: ATTEND Physician Assistant
DX: R30.0 Dysuria (principal)

== ENCOUNTER → 2021-02-23 | Outpatient (REF) | payer BC ==
[2021-02-23 12:33] LABS: ALBUMIN 3.8 GM/DL (3.2-5.2); ALT/SGPT 28 U/L (12-78); BILIRUBIN,TOTAL 0.5 MG/DL (0.2-1.0); BLOOD UREA NITROGEN 11 MG/DL (7-18); CALCIUM LEVEL 9.3 MG/DL (8.5-10.1); CARBON DIOXIDE LEVEL 30 MEQ/L (21-32); CHLORIDE LEVEL 106 MEQ/L (98-107); CHOLESTEROL LEVEL 153 MG/DL (<200); CHOLESTEROL RISK RATIO 4.135 (<5); CREATININE FOR GFR 0.86 MG/DL (0.55-1.30); GLOMERULAR FILTRATION RATE > 60.0 (>60); GLUCOSE, FASTING 96 MG/DL (70-100); HDL CHOLESTEROL 37 MG/DL (>40); LDL CHOLESTEROL 87 MG/DL (<100); NON-HDL-C 116 MG/DL; POTASSIUM SERUM 4.3 MEQ/L (3.5-5.1); SODIUM LEVEL 141 MEQ/L (136-145); TOTAL PROTEIN 7.5 GM/DL (6.4-8.2); TRIGLYCERIDES LEVEL 143 MG/DL (<150)
[2021-02-23 13:03] LABS: HEMOGLOBIN A1c 5.2 %
== END ==
LOC: M SFHCCLAY 07:56
PROVIDERS: ATTEND Nurse Practitioner Family
DX: F41.8 Other specified anxiety disorders (principal); E66.01 Morbid (severe) obesity due to excess calories

== ENCOUNTER → 2021-03-10 | Outpatient (CLI) | payer OTHER ==
--- NOTE | 2021-03-10 10:55 | REP ---
INDICATION: M25.572, ACUTE LEFT ANKLE PAIN COMPARISON: 06/14/2015 TECHNIQUE: AP, lateral, bilateral oblique views. FINDINGS: No acute fracture or dislocation. Skeletal structures and joint spaces are intact and essentially normal. Ankle mortise appears stable. No subcutaneous emphysema or radiodense foreign body. There is a small corticated density along the anteroinferior aspect of the tibia identified on lateral radiograph which likely represents chronic change or old injury. IMPRESSION: No obvious acute fracture or dislocation <Electronically signed by Kameron Garcia > 03/10/21 1059
== END ==
LOC: M CLY 10:19
PROVIDERS: ATTEND Nurse Practitioner Family
DX: M25.572 Pain in left ankle and joints of left foot (principal)

== ENCOUNTER → 2021-03-10 | Outpatient (REF) | payer OTHER ==
[2021-03-10 16:14] LABS: BASO # 0.1 10^3/uL (0.0-0.2); BASO % 0.5 % (0.0-1.0); EOS # 0.2 10^3/uL (0.0-0.5); EOS % 1.6 % (0.0-3.0); HEMATOCRIT 37.6 % (36.0-47.0); HEMOGLOBIN 11.8 g/dl (12.0-15.5); LYMPH # 2.6 10^3/uL (1.5-5.0); LYMPH % 23.3 % (24.0-44.0); MEAN CORPUSCULAR HEMOGLOBIN 25.8 pg (27.0-33.0); MEAN CORPUSCULAR HGB CONC 31.4 g/dl (32.0-36.5); MEAN CORPUSCULAR VOLUME 82.3 fl (80.0-96.0); MONO # 0.5 10^3/uL (0.0-0.8); MONO % 4.6 % (2.0-8.0); NEUTROPHILS # 7.7 10^3/uL (1.5-8.5); NEUTROPHILS % 69.4 % (36.0-66.0); PLATELET COUNT, AUTOMATED 318 10^3/uL (150-450); RED BLOOD COUNT 4.57 10^6/uL (4.00-5.40); WHITE BLOOD COUNT 11.1 10^3/uL (4.0-10.0)
[2021-03-10 16:57] LABS: ALBUMIN 3.9 GM/DL (3.2-5.2); ALT/SGPT 21 U/L (12-78); BILIRUBIN,TOTAL 0.5 MG/DL (0.2-1.0); BLOOD UREA NITROGEN 15 MG/DL (7-18); CALCIUM LEVEL 9.2 MG/DL (8.5-10.1); CARBON DIOXIDE LEVEL 32 MEQ/L (21-32); CHLORIDE LEVEL 103 MEQ/L (98-107); CHOLESTEROL LEVEL 158 MG/DL (<200); CHOLESTEROL RISK RATIO 4.787 (<5); FREE T4 1.21 NG/DL (0.76-1.46); GLOMERULAR FILTRATION RATE > 60.0 (>60); GLUCOSE, FASTING 84 MG/DL (70-100); HDL CHOLESTEROL 33 MG/DL (>40); LDL CHOLESTEROL 79 MG/DL (<100); NON-HDL-C 125 MG/DL; SODIUM LEVEL 137 MEQ/L (136-145); TOTAL PROTEIN 7.6 GM/DL (6.4-8.2); TRIGLYCERIDES LEVEL 228 MG/DL (<150); URIC ACID 6.9 MG/DL (2.6-6.0)
[2021-03-10 17:58] LABS: HEMOGLOBIN A1c 5.3 %
== END ==
LOC: M SFHCCLAY 10:02
PROVIDERS: ATTEND Nurse Practitioner Family
DX: F41.8 Other specified anxiety disorders (principal); E66.01 Morbid (severe) obesity due to excess calories; K75.81 Nonalcoholic steatohepatitis (NASH); E78.5 Hyperlipidemia, unspecified; L40.9 Psoriasis, unspecified; B95.2 Enterococcus as the cause of diseases classified elsewhere; E11.9 Type 2 diabetes mellitus without complications; M25.572 Pain in left ankle and joints of left foot

== ENCOUNTER → 2021-09-15 | Outpatient (REF) | payer OTHER ==
[2021-09-15 11:47] LABS: BASO # 0.1 10^3/uL (0.0-0.2); BASO % 0.7 % (0.0-1.0); EOS # 0.2 10^3/uL (0.0-0.5); EOS % 2.2 % (0.0-3.0); HEMATOCRIT 37.1 % (36.0-47.0); LYMPH # 2.3 10^3/uL (1.5-5.0); MEAN CORPUSCULAR HEMOGLOBIN 26.4 pg (27.0-33.0); MEAN CORPUSCULAR HGB CONC 32.3 g/dl (32.0-36.5); MEAN CORPUSCULAR VOLUME 81.7 fl (80.0-96.0); MONO # 0.7 10^3/uL (0.0-0.8); MONO % 6.6 % (2.0-8.0); NEUTROPHILS # 7.6 10^3/uL (1.5-8.5); NEUTROPHILS % 68.7 % (36.0-66.0); PLATELET COUNT, AUTOMATED 304 10^3/uL (150-450); RED BLOOD COUNT 4.54 10^6/uL (4.00-5.40)
[2021-09-15 12:55] LABS: ALBUMIN 3.8 GM/DL (3.2-5.2); ALT/SGPT 21 U/L (12-78); BILIRUBIN,TOTAL 0.5 MG/DL (0.2-1.0); BLOOD UREA NITROGEN 13 MG/DL (7-18); CALCIUM LEVEL 9.2 MG/DL (8.5-10.1); CARBON DIOXIDE LEVEL 29 MEQ/L (21-32); CHLORIDE LEVEL 105 MEQ/L (98-107); CHOLESTEROL LEVEL 151 MG/DL (<200); CHOLESTEROL RISK RATIO 3.871 (<5); CREATININE FOR GFR 0.93 MG/DL (0.55-1.30); GLOMERULAR FILTRATION RATE > 60.0 (>58); GLUCOSE, FASTING 98 MG/DL (70-100); HDL CHOLESTEROL 39 MG/DL (>40); LDL CHOLESTEROL 72 MG/DL (<100); NON-HDL-C 112 MG/DL; POTASSIUM SERUM 4.4 MEQ/L (3.5-5.1); SODIUM LEVEL 137 MEQ/L (136-145); TOTAL PROTEIN 7.2 GM/DL (6.4-8.2); TRIGLYCERIDES LEVEL 202 MG/DL (<150)
[2021-09-15 23:59] LABS: HEMOGLOBIN A1c 5.3 %
== END ==
LOC: M SFHCCLAY 07:25
PROVIDERS: ATTEND Nurse Practitioner Family
DX: E66.01 Morbid (severe) obesity due to excess calories (principal); F41.8 Other specified anxiety disorders; K75.81 Nonalcoholic steatohepatitis (NASH); E11.9 Type 2 diabetes mellitus without complications; L40.9 Psoriasis, unspecified; E78.5 Hyperlipidemia, unspecified; N39.0 Urinary tract infection, site not specified; B95.2 Enterococcus as the cause of diseases classified elsewhere

== ENCOUNTER → 2021-12-17 | Outpatient (REF) | payer OTHER | LOC: M SFHCCLAY 09:44 | PROVIDERS: ATTEND Nurse Practitioner Family | DX: Z01.419 Encounter for gynecological examination (general) (routine) without abnormal findings (principal) ==

== ENCOUNTER → 2022-01-08 | Outpatient (REF) | payer OTHER ==
[2022-01-08 12:35] LABS: BLOOD UREA NITROGEN 17 MG/DL (7-18); CALCIUM LEVEL 8.8 MG/DL (8.5-10.1); CARBON DIOXIDE LEVEL 28 MEQ/L (21-32); CHLORIDE LEVEL 108 MEQ/L (98-107); CREATININE FOR GFR 0.84 MG/DL (0.55-1.30); GLOMERULAR FILTRATION RATE > 60.0 (>58); GLUCOSE, FASTING 91 MG/DL (70-100); POTASSIUM SERUM 4.3 MEQ/L (3.5-5.1); SODIUM LEVEL 142 MEQ/L (136-145)
[2022-01-08 14:00] LABS: HEMOGLOBIN A1c 5.4 %
== END ==
LOC: M SFHCCLAY 07:10
PROVIDERS: ATTEND Nurse Practitioner Family
DX: E11.9 Type 2 diabetes mellitus without complications (principal)

== ENCOUNTER → 2022-06-21 | Outpatient (REF) | payer OTHER ==
[~2022-06-21] MED LIST changes: +MONT-5 PO; -SING10TA32 PO
[2022-06-21 12:21] LABS: ALBUMIN 3.6 G/DL (3.2-5.2); ALKALINE PHOSPHATASE 58 U/L (46-116); ALT/SGPT 19 U/L (7.0-40); AST/SGOT 16 U/L (<34); BILIRUBIN,TOTAL 0.4 MG/DL (0.3-1.2); BLOOD UREA NITROGEN 17 MG/DL (9-23); CARBON DIOXIDE LEVEL 28 MMOL/L (20-31); CHLORIDE LEVEL 104 MMOL/L (98-107); CREATININE FOR GFR 0.87 MG/DL (0.55-1.30); GLOMERULAR FILTRATION RATE > 60.0 (>58); GLUCOSE, FASTING 93 MG/DL (60-100); POTASSIUM SERUM 4.5 MMOL/L (3.5-5.1); SODIUM LEVEL 138 MMOL/L (136-145); TOTAL PROTEIN 7.3 G/DL (5.7-8.2)
[2022-06-21 12:23] LABS: FREE T4 0.99 NG/DL (0.89-1.76); THYROID STIMULATING HORMONE 1.264 uIU/ML (0.55-4.78)
[2022-06-21 12:24] LABS: BASO # 0.1 10^3/uL (0.0-0.2); BASO % 0.7 % (0.0-1.0); EOS # 0.3 10^3/uL (0.0-0.5); EOS % 2.6 % (0.0-3.0); HEMATOCRIT 37.6 % (36.0-47.0); HEMOGLOBIN 11.8 g/dl (12.0-15.5); LYMPH # 2.3 10^3/uL (1.5-5.0); MEAN CORPUSCULAR HEMOGLOBIN 25.4 pg (27.0-33.0); MEAN CORPUSCULAR HGB CONC 31.4 g/dl (32.0-36.5); MEAN CORPUSCULAR VOLUME 80.9 fl (80.0-96.0); MONO # 0.8 10^3/uL (0.0-0.8); MONO % 7.1 % (2.0-8.0); NEUTROPHILS # 7.3 10^3/uL (1.5-8.5); NEUTROPHILS % 67.9 % (36.0-66.0); PLATELET COUNT, AUTOMATED 298 10^3/uL (150-450); RED BLOOD COUNT 4.65 10^6/uL (4.00-5.40); WHITE BLOOD COUNT 10.8 10^3/uL (4.0-10.0)
== END ==
LOC: M SFHCCLAY 07:00
PROVIDERS: ATTEND Nurse Practitioner Family
DX: E66.01 Morbid (severe) obesity due to excess calories (principal); F41.8 Other specified anxiety disorders; K75.81 Nonalcoholic steatohepatitis (NASH); E11.9 Type 2 diabetes mellitus without complications; L40.9 Psoriasis, unspecified; E78.5 Hyperlipidemia, unspecified; N39.0 Urinary tract infection, site not specified; B95.2 Enterococcus as the cause of diseases classified elsewhere

== ENCOUNTER → 2022-06-28 | Outpatient (CLI) | payer BC | LOC: M WHC 09:34 | PROVIDERS: ATTEND Nurse Practitioner Family | DX: Z12.31 Encounter for screening mammogram for malignant neoplasm of breast (principal) ==

== ENCOUNTER → 2022-07-13 | Outpatient (CLI) | payer BC | LOC: M WHC 09:28 | PROVIDERS: ATTEND Nurse Practitioner Family | DX: R92.8 Other abnormal and inconclusive findings on diagnostic imaging of breast (principal) ==

== ENCOUNTER → 2022-08-18 | Outpatient (REF) | payer BC | LOC: M SFHCCLAY 17:24 | PROVIDERS: ATTEND Nurse Practitioner Family | DX: K62.5 Hemorrhage of anus and rectum (principal) ==

== ENCOUNTER → 2022-09-10 | Outpatient (CLI) | payer BC | LOC: M RAD 14:23 | PROVIDERS: ATTEND Nurse Practitioner Family | DX: E28.2 Polycystic ovarian syndrome (principal) ==

== ENCOUNTER → 2023-02-02 | Outpatient (CLI) | payer BC ==
[~2023-02-02] MED LIST changes: +DIAZ-654 PO; -VALI10TA PO
== END ==
LOC: M WHC 12:56
PROVIDERS: ATTEND Nurse Practitioner Family
DX: R92.8 Other abnormal and inconclusive findings on diagnostic imaging of breast (principal)

== ENCOUNTER → 2023-05-03 | Outpatient (REF) | payer BC ==
[2023-05-03 12:13] LABS: AMORPHOUS SEDIMENT SMALL (NEGATIVE); APPEARANCE, URINE TURBID (CLEAR); BACTERIA, URINE AUTO 2+ (NEGATIVE); BILIRUBIN, URINE AUTO NEGATIVE (NEGATIVE); BLOOD, URINE BLOOD NEGATIVE (NEGATIVE); COLOR, URINE YELLOW (YELLOW); GLUCOSE, URINE (UA) AUTO NEGATIVE (NEGATIVE); KETONE, URINE AUTO NEGATIVE (NEGATIVE); LEUKOCYTE ESTERASE, URINE AUTO 1+ (NEGATIVE); MUCUS, URINE SMALL (NEGATIVE); NITRITE, URINE AUTO POSITIVE (NEGATIVE); PROTEIN, URINE AUTO NEGATIVE (NEGATIVE); RBC, URINE AUTO 0 /HPF (0-3); SPECIFIC GRAVITY URINE AUTO 1.024 (1.002-1.035); SQUAMOUS EPITHELIAL CELL UR AU 11 /HPF (0-6); UROBILINOGEN, URINE AUTO 0.2 mg/dL (0.0-2.0); WBC, URINE AUTO 39 /HPF (0-3)
[2023-05-03 12:16] LABS: BASO # 0.1 10^3/uL (0.0-0.2); BASO % 0.9 % (0.0-1.0); EOS # 0.4 10^3/uL (0.0-0.5); EOS % 3.6 % (0.0-3.0); HEMATOCRIT 36.9 % (36.0-47.0); HEMOGLOBIN 11.8 g/dl (12.0-15.5); LYMPH # 2.2 10^3/uL (1.5-5.0); LYMPH % 21.3 % (24.0-44.0); MEAN CORPUSCULAR HEMOGLOBIN 25.4 pg (27.0-33.0); MEAN CORPUSCULAR VOLUME 79.5 fl (80.0-96.0); MONO # 0.6 10^3/uL (0.0-0.8); MONO % 6.1 % (2.0-8.0); NEUTROPHILS # 7.1 10^3/uL (1.5-8.5); NEUTROPHILS % 67.4 % (36.0-66.0); PLATELET COUNT, AUTOMATED 331 10^3/uL (150-450); RED BLOOD COUNT 4.64 10^6/uL (4.00-5.40); WHITE BLOOD COUNT 10.5 10^3/uL (4.0-10.0)
[2023-05-03 12:35] LABS: HEMOGLOBIN A1c 5.3 % (4.0-6.0)
[2023-05-03 12:44] LABS: ALBUMIN 3.7 G/DL (3.2-5.2); ALKALINE PHOSPHATASE 63 U/L (46-116); ALT/SGPT 14 U/L (7.0-40); AST/SGOT 9 U/L (<34); BILIRUBIN,TOTAL 0.4 MG/DL (0.3-1.2); BLOOD UREA NITROGEN 16 MG/DL (9-23); CALCIUM LEVEL 9.2 MG/DL (8.5-10.1); CARBON DIOXIDE LEVEL 26 MMOL/L (20-31); CHLORIDE LEVEL 108 MMOL/L (98-107); CREATININE FOR GFR 0.91 MG/DL (0.55-1.30); GLOMERULAR FILTRATION RATE > 60.0 (>58); GLUCOSE, FASTING 88 MG/DL (60-100); POTASSIUM SERUM 4.5 MMOL/L (3.5-5.1); SODIUM LEVEL 139 MMOL/L (136-145); TOTAL PROTEIN 7.2 G/DL (5.7-8.2)
== END ==
LOC: M SFHCCLAY 06:56
PROVIDERS: ATTEND Physician Assistant
DX: R30.0 Dysuria (principal)

== ENCOUNTER → 2023-06-06 | Outpatient (CLI) | payer BC | LOC: M CLY 11:06 | PROVIDERS: ATTEND Nurse Practitioner Family | DX: R11.2 Nausea with vomiting, unspecified (principal) ==

== ENCOUNTER → 2023-07-05 | Outpatient (CLI) | payer BC ==
[~2023-07-05] MED LIST changes: +E-Z-GAS II EFFERVESCENT PACKET (SODIUM BICARB./CITRIC ACID/SIMETHICONE) As Ordered ONE; +E-Z-HD 98% w/w 340GM SUSP BTL As Ordered ONE; +E-Z-PAQUE 96% w/w SUSP 176GM BTL As Ordered ONE
== END ==
LOC: M RAD 08:08
PROVIDERS: ATTEND Nurse Practitioner Family
DX: R10.13 Epigastric pain (principal); R19.4 Change in bowel habit

== ENCOUNTER 2023-09-26 10:16 | Day surgery (SDC) | payer BC ==
[~2023-09-26] VITALS: Ht 165.1 cm; Wt 98.4 kg
[~2023-09-26 10:16] MED LIST changes: -E-Z-GAS II EFFERVESCENT PACKET (SODIUM BICARB./CITRIC ACID/SIMETHICONE) As Ordered ONE; -E-Z-HD 98% w/w 340GM SUSP BTL As Ordered ONE; -E-Z-PAQUE 96% w/w SUSP 176GM BTL As Ordered ONE; -FURO20TA2; +FURO20TA2 PO; -ISIB1TAB; +ISIB1TAB PO; +LIDOCAINE 2% 100MG/5ML SDV (FOR ANES.) As Ordered ONE; +LISD20CA PO; +NS 1,000 ML IV ONE; +OMEP40CA5 PO; +ONDA-282 PO; -PANT40TA29; +PANT40TA29 PO; +SEMA0.257; -SPIR50TA4; +SPIR50TA4 PO; +VENL37.598 PO; +fentaNYL 100 MCG/2 ML INJECTION As Ordered ONE; +propofoL 200 MG/20 ML VIAL As Ordered ONE
[2023-09-26] MEDS ORDERED: ONDANSETRON 4MG 2ML VIAL As Ordered ONE (12:00)
[2023-09-26 12:11] VITALS: TEMP 97.5
[2023-09-26 12:39] VITALS: BP 112/73; O2SAT 95
== END 2023-09-26 12:38 | disposition home or self-care (01) ==
LOC: M OPP 10:16
PROVIDERS: ATTEND Internal Medicine Gastroenterology
DX: K63.89 Other specified diseases of intestine (principal); R93.3 Abnormal findings on diagnostic imaging of other parts of digestive tract; K29.50 Unspecified chronic gastritis without bleeding; R11.0 Nausea; R12 Heartburn; Z79.84 Long term (current) use of oral hypoglycemic drugs; Z79.899 Other long term (current) drug therapy; Z88.8 Allergy status to other drugs, medicaments and biological substances
CPT/HCPCS: 43239; 45380; 88305; J2405; J3010

== ENCOUNTER → 2023-11-01 | Outpatient (REF) | payer BC ==
[~2023-11-01] MED LIST changes: -LIDOCAINE 2% 100MG/5ML SDV (FOR ANES.) As Ordered ONE; -NS 1,000 ML IV ONE; -fentaNYL 100 MCG/2 ML INJECTION As Ordered ONE; -propofoL 200 MG/20 ML VIAL As Ordered ONE
[2023-11-01 12:31] LABS: AMORPHOUS SEDIMENT SMALL (NEGATIVE); APPEARANCE, URINE HAZY (CLEAR); BACTERIA, URINE AUTO 1+ (NEGATIVE); BILIRUBIN, URINE AUTO NEGATIVE (NEGATIVE); BLOOD, URINE BLOOD NEGATIVE (NEGATIVE); COLOR, URINE YELLOW (YELLOW); GLUCOSE, URINE (UA) AUTO NEGATIVE (NEGATIVE); KETONE, URINE AUTO NEGATIVE (NEGATIVE); LEUKOCYTE ESTERASE, URINE AUTO NEGATIVE (NEGATIVE); MUCUS, URINE SMALL (NEGATIVE); NITRITE, URINE AUTO NEGATIVE (NEGATIVE); PROTEIN, URINE AUTO NEGATIVE (NEGATIVE); RBC, URINE AUTO 2 /HPF (0-3); SPECIFIC GRAVITY URINE AUTO 1.011 (1.002-1.035); SQUAMOUS EPITHELIAL CELL UR AU 1 /HPF (0-6); UROBILINOGEN, URINE AUTO 0.2 mg/dL (0.0-2.0); WBC, URINE AUTO 3 /HPF (0-3)
[2023-11-01 12:54] LABS: BASO # 0.1 10^3/uL (0.0-0.2); BASO % 0.9 % (0.0-1.0); EOS # 0.4 10^3/uL (0.0-0.5); EOS % 3.5 % (0.0-3.0); HEMATOCRIT 38.4 % (36.0-47.0); HEMOGLOBIN 12.3 g/dl (12.0-15.5); LYMPH # 2.2 10^3/uL (1.5-5.0); LYMPH % 21.1 % (24.0-44.0); MEAN CORPUSCULAR HEMOGLOBIN 26.3 pg (27.0-33.0); MEAN CORPUSCULAR VOLUME 82.1 fl (80.0-96.0); MONO # 0.7 10^3/uL (0.0-0.8); MONO % 6.7 % (2.0-8.0); NEUTROPHILS % 67.1 % (36.0-66.0); PLATELET COUNT, AUTOMATED 338 10^3/uL (150-450); RED BLOOD COUNT 4.68 10^6/uL (4.00-5.40); WHITE BLOOD COUNT 10.4 10^3/uL (4.0-10.0)
[2023-11-01 13:09] LABS: HEMOGLOBIN A1c 5.2 % (4.0-6.0)
[2023-11-01 13:27] LABS: FREE T4 1.26 NG/DL (0.89-1.76); THYROID STIMULATING HORMONE 0.959 uIU/ML (0.55-4.78)
[2023-11-01 13:30] LABS: ALKALINE PHOSPHATASE 65 U/L (46-116); ALT/SGPT 12 U/L (7.0-40); AST/SGOT 9 U/L (<34); BILIRUBIN,TOTAL 0.3 MG/DL (0.3-1.2); BLOOD UREA NITROGEN 19 MG/DL (9-23); CALCIUM LEVEL 9.7 MG/DL (8.5-10.1); CARBON DIOXIDE LEVEL 28 MMOL/L (20-31); CHLORIDE LEVEL 104 MMOL/L (98-107); CHOLESTEROL LEVEL 160 MG/DL (<200); CHOLESTEROL RISK RATIO 3.95 (<5); CREATININE FOR GFR 0.89 MG/DL (0.55-1.30); GLOMERULAR FILTRATION RATE > 60.0 (>58); GLUCOSE, FASTING 85 MG/DL (60-100); HDL CHOLESTEROL 40.5 MG/DL (>40); LDL CHOLESTEROL 64.9 MG/DL (<100); NON-HDL-C 119.5 MG/DL; SODIUM LEVEL 139 MMOL/L (136-145); TOTAL PROTEIN 7.7 G/DL (5.7-8.2); TRIGLYCERIDES LEVEL 273 MG/DL (<150)
== END ==
LOC: M SFHCCLAY 08:31
PROVIDERS: ATTEND Nurse Practitioner Family
DX: E66.01 Morbid (severe) obesity due to excess calories (principal); F41.8 Other specified anxiety disorders; K75.81 Nonalcoholic steatohepatitis (NASH); E11.9 Type 2 diabetes mellitus without complications; E78.5 Hyperlipidemia, unspecified; E28.2 Polycystic ovarian syndrome; N39.0 Urinary tract infection, site not specified

== ENCOUNTER → 2024-04-05 | Outpatient (REF) | payer BC ==
[~2024-04-05] MED LIST changes: +GABA-1635 PO; -GABA800T4 PO
[2024-04-06 11:46] LABS: APPEARANCE, URINE MANUAL CLEAR (CLEAR); BILIRUBIN, URINE MANUAL NEGATIVE (NEGATIVE); BLOOD URINE MANUAL POSITIVE (NEGATIVE); COLOR, URINE MANUAL YELLOW (YELLOW); GLUCOSE, URINE (UA) MANUAL NEGATIVE (NEGATIVE); KETONE, URINE MANUAL NEGATIVE (NEGATIVE); LEUKOCYTE ESTERASE, URINE MAN TRACE (NEGATIVE); NITRITE, URINE MANUAL POSITIVE (NEGATIVE); PROTEIN, URINE MANUAL NEGATIVE (NEGATIVE); UROBILINOGEN, URINE MANUAL NORMAL (NORMAL)
[2024-04-06 11:47] LABS: BACTERIA, URINE LARGE AMOUNT; HYALINE CAST, URINE NONE SEEN /lpf (0-1); SQUAMOUS EPITHELIAL CELL URINE MOD AMOUNT /hpf (SMALL AMT)
== END ==
LOC: M SFHCCLAY 16:33
PROVIDERS: ATTEND Physician Assistant
DX: N30.01 Acute cystitis with hematuria (principal)

== ENCOUNTER → 2024-04-09 | Outpatient (CLI) | payer BC | LOC: M CLY 09:03 | PROVIDERS: ATTEND Nurse Practitioner Family | DX: M79.641 Pain in right hand (principal) ==

== ENCOUNTER → 2024-04-25 | Outpatient (REF) | payer BC ==
[2024-04-25 18:11] LABS: APPEARANCE, URINE MANUAL CLOUDY (CLEAR); BILIRUBIN, URINE MANUAL NEGATIVE (NEGATIVE); BLOOD URINE MANUAL NEGATIVE (NEGATIVE); COLOR, URINE MANUAL YELLOW (YELLOW); GLUCOSE, URINE (UA) MANUAL NEGATIVE (NEGATIVE); KETONE, URINE MANUAL NEGATIVE (NEGATIVE); LEUKOCYTE ESTERASE, URINE MAN NEGATIVE (NEGATIVE); NITRITE, URINE MANUAL NEGATIVE (NEGATIVE); PROTEIN, URINE MANUAL NEGATIVE (NEGATIVE); SPECIFIC GRAVITY,URINE MANUAL 1.025 (1.002-1.035); UROBILINOGEN, URINE MANUAL NORMAL (NORMAL)
[2024-04-25 18:41] LABS: AMORPHOUS SEDIMENT, URINE LARGE AMOUNT (NEGATIVE); BACTERIA, URINE NONE SEEN; HYALINE CAST, URINE NONE SEEN /lpf (0-1); RBC, URINE 0-1 /hpf (0-3); SQUAMOUS EPITHELIAL CELL URINE SMALL AMOUNT /hpf (SMALL AMT)
== END ==
LOC: M SFHCCLAY 12:15
PROVIDERS: ATTEND Physician Assistant
DX: R39.9 Unspecified symptoms and signs involving the genitourinary system (principal)

== ENCOUNTER → 2024-06-14 | Outpatient (REF) | payer BC ==
[2024-06-14 19:11] LABS: CALCIUM LEVEL 9.5 MG/DL (8.5-10.1); CREATININE FOR GFR 0.83 MG/DL (0.55-1.30); GLOMERULAR FILTRATION RATE 89.7 (>58)
== END ==
LOC: M SFHCCLAY 13:08
PROVIDERS: ATTEND Urology
DX: N39.0 Urinary tract infection, site not specified (principal)

== ENCOUNTER → 2024-06-26 | Outpatient (CLI) | payer BC ==
[~2024-06-26] MED LIST changes: +ISOVUE-370 76% 100ML VIAL As Ordered ONE
== END ==
LOC: M PLAIMG 10:28 → M RAD 11:42
PROVIDERS: ATTEND Urology
DX: N39.0 Urinary tract infection, site not specified (principal)

== ENCOUNTER → 2024-07-05 | Outpatient (REF) | payer BC ==
[~2024-07-05] MED LIST changes: -AMBI10TA PO; -ISOVUE-370 76% 100ML VIAL As Ordered ONE; +ZOLP-533 PO
== END ==
LOC: M SFHCCLAY 11:11
PROVIDERS: ATTEND Nurse Practitioner Family
DX: Z53.9 Procedure and treatment not carried out, unspecified reason (principal)

== ENCOUNTER → 2024-07-13 | Outpatient (REF) | payer BC ==
[2024-07-13 14:32] LABS: APPEARANCE, URINE CLEAR (CLEAR); BACTERIA, URINE AUTO 2+ (NEGATIVE); BILIRUBIN, URINE AUTO NEGATIVE (NEGATIVE); BLOOD, URINE BLOOD NEGATIVE (NEGATIVE); COLOR, URINE YELLOW (YELLOW); GLUCOSE, URINE (UA) AUTO NEGATIVE (NEGATIVE); KETONE, URINE AUTO NEGATIVE (NEGATIVE); LEUKOCYTE ESTERASE, URINE AUTO NEGATIVE (NEGATIVE); MUCUS, URINE SMALL (NEGATIVE); NITRITE, URINE AUTO NEGATIVE (NEGATIVE); PROTEIN, URINE AUTO NEGATIVE (NEGATIVE); RBC, URINE AUTO 2 /HPF (0-3); SPECIFIC GRAVITY URINE AUTO 1.014 (1.002-1.035); SQUAMOUS EPITHELIAL CELL UR AU 1 /HPF (0-6); UROBILINOGEN, URINE AUTO 0.2 mg/dL (0.0-2.0); WBC, URINE AUTO 5 /HPF (0-3)
== END ==
LOC: M SMT 13:14
PROVIDERS: ATTEND Urology
DX: K21.9 Gastro-esophageal reflux disease without esophagitis (principal); Z87.440 Personal history of urinary (tract) infections

== ENCOUNTER → 2024-09-12 | Outpatient (REF) | payer BC ==
[~2024-09-12] MED LIST changes: +CLON0.5T17 PO; +METF-838 PO; +TIRZ5PEN SQ
[2024-09-12 12:25] LABS: APPEARANCE, URINE HAZY (CLEAR); BACTERIA, URINE AUTO NEGATIVE (NEGATIVE); BILIRUBIN, URINE AUTO NEGATIVE (NEGATIVE); BLOOD, URINE BLOOD NEGATIVE (NEGATIVE); GLUCOSE, URINE (UA) AUTO NEGATIVE (NEGATIVE); KETONE, URINE AUTO NEGATIVE (NEGATIVE); LEUKOCYTE ESTERASE, URINE AUTO NEGATIVE (NEGATIVE); NITRITE, URINE AUTO NEGATIVE (NEGATIVE); PROTEIN, URINE AUTO NEGATIVE (NEGATIVE); RBC, URINE AUTO 0 /HPF (0-3); SPECIFIC GRAVITY URINE AUTO 1.012 (1.002-1.035); SQUAMOUS EPITHELIAL CELL UR AU 3 /HPF (0-6); UROBILINOGEN, URINE AUTO 0.2 mg/dL (0.0-2.0); WBC, URINE AUTO 1 /HPF (0-3)
[2024-09-12 12:36] LABS: ALT/SGPT 25 U/L (7.0-40); AST/SGOT 25 U/L (<34); CALCIUM LEVEL 9.7 MG/DL (8.5-10.1); CARBON DIOXIDE LEVEL 21 MMOL/L (20-31); CHLORIDE LEVEL 105 MMOL/L (98-107); CREATININE FOR GFR 0.68 MG/DL (0.55-1.30); GLOMERULAR FILTRATION RATE > 90.0 (>58); POTASSIUM SERUM 4.3 MMOL/L (3.5-5.1); SODIUM LEVEL 141 MMOL/L (136-145)
== END ==
LOC: M SFHCCLAY 09:20
PROVIDERS: ATTEND Urology
DX: N39.3 Stress incontinence (female) (male) (principal); N30.01 Acute cystitis with hematuria

== ENCOUNTER → 2024-09-12 | Outpatient (REF) | payer BC ==
[2024-09-12 19:12] LABS: PLATELET COUNT, AUTOMATED 314 10^3/uL (150-450)
== END ==
LOC: M LABDRAWC 18:03
PROVIDERS: ATTEND Urology
DX: N39.3 Stress incontinence (female) (male) (principal); N30.01 Acute cystitis with hematuria

== ENCOUNTER 2024-09-20 06:07 | Day surgery (SDC) | payer BC ==
[~2024-09-20] VITALS: Ht 165.1 cm; Wt 110.0 kg
[2024-09-20] MEDS ORDERED: LR 1,000 ML IV SCH (06:20)
[2024-09-20] MEDS ORDERED: LIDOCAINE 2% 100 MG/5 ML SDV (FOR ANES.) As Ordered ONE (06:48)
[2024-09-20] MEDS ORDERED: dexAMETHasone 4 MG/ML 1 ML VIAL As Ordered ONE (07:40)
[2024-09-20] MEDS ORDERED: ONDANSETRON 4MG 2ML VIAL As Ordered ONE (07:40)
[2024-09-20] MEDS: ceFAZolin SOD 2 GM IV ONCE IV ONE (07:40)
[2024-09-20 08:49] VITALS: BP 118/69; TEMP 97.5; O2SAT 97
== END 2024-09-20 08:53 | disposition home or self-care (01) ==
LOC: M SDC 06:07
PROVIDERS: ATTEND Urology
DX: N39.3 Stress incontinence (female) (male) (principal); Z68.37 Body mass index [BMI] 37.0-37.9, adult; Z88.8 Allergy status to other drugs, medicaments and biological substances; Z79.899 Other long term (current) drug therapy
CPT/HCPCS: 51715; A4215; A4649; J0690; J1100; J2405; J3010; L8606

== ENCOUNTER → 2024-11-16 | Outpatient (REF) | payer BC ==
[2024-11-16 14:30] LABS: APPEARANCE, URINE HAZY (CLEAR); BACTERIA, URINE AUTO 1+ (NEGATIVE); BILIRUBIN, URINE AUTO NEGATIVE (NEGATIVE); BLOOD, URINE BLOOD NEGATIVE (NEGATIVE); GLUCOSE, URINE (UA) AUTO NEGATIVE (NEGATIVE); KETONE, URINE AUTO NEGATIVE (NEGATIVE); LEUKOCYTE ESTERASE, URINE AUTO NEGATIVE (NEGATIVE); NITRITE, URINE AUTO NEGATIVE (NEGATIVE); PROTEIN, URINE AUTO NEGATIVE (NEGATIVE); RBC, URINE AUTO 1 /HPF (0-3); SPECIFIC GRAVITY URINE AUTO 1.020 (1.002-1.035); SQUAMOUS EPITHELIAL CELL UR AU 6 /HPF (0-6); UROBILINOGEN, URINE AUTO 0.2 mg/dL (0.0-2.0); WBC, URINE AUTO 8 /HPF (0-3)
== END ==
LOC: M SMT 13:17
PROVIDERS: ATTEND Physician Assistant
DX: R39.9 Unspecified symptoms and signs involving the genitourinary system (principal)

== ENCOUNTER → 2024-12-11 | Outpatient (REF) | payer BC ==
[2024-12-11 14:53] LABS: APPEARANCE, URINE HAZY (CLEAR); BACTERIA, URINE AUTO NEGATIVE (NEGATIVE); BILIRUBIN, URINE AUTO NEGATIVE (NEGATIVE); BLOOD, URINE BLOOD NEGATIVE (NEGATIVE); GLUCOSE, URINE (UA) AUTO NEGATIVE (NEGATIVE); KETONE, URINE AUTO NEGATIVE (NEGATIVE); LEUKOCYTE ESTERASE, URINE AUTO NEGATIVE (NEGATIVE); MUCUS, URINE SMALL (NEGATIVE); NITRITE, URINE AUTO NEGATIVE (NEGATIVE); PROTEIN, URINE AUTO NEGATIVE (NEGATIVE); RBC, URINE AUTO 1 /HPF (0-3); SPECIFIC GRAVITY URINE AUTO 1.010 (1.002-1.035); SQUAMOUS EPITHELIAL CELL UR AU 5 /HPF (0-6); UROBILINOGEN, URINE AUTO 0.2 mg/dL (0.0-2.0); WBC, URINE AUTO 0 /HPF (0-3)
== END ==
LOC: M SMT 13:13
PROVIDERS: ATTEND Physician Assistant
DX: N39.0 Urinary tract infection, site not specified (principal)

== ENCOUNTER → 2025-01-08 | Outpatient (REF) | payer BC ==
[~2025-01-08] MED LIST changes: +MORP15TASA PO; -MORP1TAB19 PO
[2025-01-08 13:16] LABS: APPEARANCE, URINE CLEAR (CLEAR); BACTERIA, URINE AUTO NEGATIVE (NEGATIVE); BILIRUBIN, URINE AUTO NEGATIVE (NEGATIVE); BLOOD, URINE BLOOD NEGATIVE (NEGATIVE); GLUCOSE, URINE (UA) AUTO NEGATIVE (NEGATIVE); KETONE, URINE AUTO NEGATIVE (NEGATIVE); LEUKOCYTE ESTERASE, URINE AUTO NEGATIVE (NEGATIVE); MUCUS, URINE SMALL (NEGATIVE); NITRITE, URINE AUTO NEGATIVE (NEGATIVE); PROTEIN, URINE AUTO NEGATIVE (NEGATIVE); RBC, URINE AUTO 0 /HPF (0-3); SPECIFIC GRAVITY URINE AUTO 1.009 (1.002-1.035); SQUAMOUS EPITHELIAL CELL UR AU 1 /HPF (0-6); UROBILINOGEN, URINE AUTO 0.2 mg/dL (0.0-2.0); WBC, URINE AUTO 2 /HPF (0-3)
== END ==
LOC: M SMT 12:40
PROVIDERS: ATTEND Physician Assistant
DX: R39.9 Unspecified symptoms and signs involving the genitourinary system (principal)

== ENCOUNTER → 2025-02-04 | Outpatient (REF) | payer BC ==
[2025-02-04 15:22] LABS: APPEARANCE, URINE CLEAR (CLEAR); BACTERIA, URINE AUTO NEGATIVE (NEGATIVE); BILIRUBIN, URINE AUTO NEGATIVE (NEGATIVE); BLOOD, URINE BLOOD NEGATIVE (NEGATIVE); GLUCOSE, URINE (UA) AUTO NEGATIVE (NEGATIVE); KETONE, URINE AUTO NEGATIVE (NEGATIVE); LEUKOCYTE ESTERASE, URINE AUTO NEGATIVE (NEGATIVE); NITRITE, URINE AUTO NEGATIVE (NEGATIVE); PROTEIN, URINE AUTO NEGATIVE (NEGATIVE); RBC, URINE AUTO 2 /HPF (0-3); SPECIFIC GRAVITY URINE AUTO 1.006 (1.002-1.035); SQUAMOUS EPITHELIAL CELL UR AU 3 /HPF (0-6); UROBILINOGEN, URINE AUTO 0.2 mg/dL (0.0-2.0); WBC, URINE AUTO 4 /HPF (0-3)
== END ==
LOC: M SMT 15:07
PROVIDERS: ATTEND Physician Assistant
DX: N39.0 Urinary tract infection, site not specified (principal)